=== PATIENT | male | born 1960 | race African-American/Black ===

== ENCOUNTER 2020-06-28 20:12 | Emergency (ER) | payer MEDICAID, OTHER ==
[~2020-06-28] VITALS: Ht 175.3 cm; Wt 90.7 kg
[~2020-06-28 20:12] MED LIST: BUSPIRONE HCL10 M1 ORAL; ESCITALOPRAM OX10 MG ORAL; FOLIC ACID1 MG ORAL; HYDROCHLOROTHIA25 MG ORAL; METFORMIN HCL500 M1 ORAL; TRAZODONE HCL50 MG PO
[2020-06-28 20:20] VITALS: BP 179/114
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
[2020-06-28] MEDS ORDERED: Aspirin Baby 81mg ORAL ONE (20:45)
[2020-06-28 20:49] LABS: BASOPHILS % (AUTO) 2.6 % (0.0-2.0); EOSINOPHILS % (AUTO) 2.7 % (0.0-3.0); HEMATOCRIT 43.8 % (42.0-52.0); HEMOGLOBIN 14.5 G/DL (14.2-18.0); LYMPHOCYTES % (AUTO) 38.8 % (20.0-45.0); MEAN CORPUSCULAR VOLUME 90 FL (80-99); MONOCYTES % (AUTO) 10.8 % (1.0-10.0); PLATELET COUNT 222 K/UL (150-450); RED BLOOD COUNT 4.86 M/UL (4.70-6.10); RED CELL DISTRIBUTION WIDTH 12.5 % (11.6-14.8); WHITE BLOOD COUNT 4.9 K/UL (4.8-10.8)
--- NOTE | 2020-06-28 21:00 | Diagnostic Imaging Report ---
EXAM: XR Chest, 1 View CLINICAL HISTORY: CP TECHNIQUE: Frontal view of the chest. COMPARISON: 07/28/13 FINDINGS: Lungs: Low lung volumes with bronchovascular crowding. No consolidation, pleural effusion, or pneumothorax. Pleural space: See above. Heart: Unremarkable. No cardiomegaly. Mediastinum: Unremarkable. Bones/joints: No acute abnormality IMPRESSION: 1. Low lung volumes with bronchovascular crowding. 2. Otherwise no acute cardiopulmonary disease. 3. If there is continued concern, recommend frontal and lateral chest radiographs or CT.
[2020-06-28 21:04] LABS: ANION GAP 9 mmol/L (5-15); BLOOD UREA NITROGEN 7 mg/dL (7-18); CALCIUM 9.3 MG/DL (8.5-10.1); CARBON DIOXIDE 27 MMOL/L (21-32); CHLORIDE 108 MMOL/L (98-107); POTASSIUM 3.8 MMOL/L (3.5-5.1); SODIUM 144 MMOL/L (136-145)
[2020-06-28 21:09] LABS: ALANINE AMINOTRANSFERASE 97 U/L (12-78); ALBUMIN 3.5 G/DL (3.4-5.0); ALBUMIN/GLOBULIN RATIO 0.9 (1.0-2.7); ALKALINE PHOSPHATASE 74 U/L (46-116); ASPARTATE AMINO TRANSFERASE 43 U/L (15-37); BILIRUBIN,TOTAL 0.4 MG/DL (0.2-1.0)
[2020-06-28 22:45] VITALS: BP 162/94
[2020-06-28] MEDS ORDERED: hydroCHLOROthiazide 25mg cap ORAL ONE (22:45)
--- NOTE | 2020-06-28 23:30 | NUR ---
ED Nurse Note: Recieved report from JIHAN Bergeron to resume care, pt has been discharged and waiting for ambulance transport back to [facility], pt resting quietly in bed, nad noted.
[2020-06-29] MEDS ORDERED: HYDROCHLOROTHIA25 MG ORAL
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
[2020-06-29 01:15] VITALS: BP 178/101
[2020-06-29] MEDS ORDERED: LORazepam 0.5mg tab ORAL ONE (02:15)
[2020-06-29 03:00] VITALS: BP 181/97
--- NOTE | 2020-06-29 03:35 | NUR ---
Patients BP remains around 170-180,however patient insisting to go back home-have no dizziness,no headache, states he feels much better now. TargetingMantra [id number]. Patient notified, states he may try to call [facility] himself but first he wants to check with [facility] if its OK. MAGALYS SHELTON also aware of patients condition. Addendum: 06/29/20 at 0350 by [facility] ambulance will be here around 0430 (not 0330)
--- NOTE | 2020-06-29 03:52 | NUR ---
Patient in and out of his room,presenting multiple requests, the same time on the phone with unknown person, repeatedly asking for transportaion.
--- NOTE | 2020-06-29 05:20 | NUR ---
ED Nurse Note:ER DISCHARGE NOTE: Patient is cleared to be discharged per ERMD, pt is aox4, on room air, with stable vital signs. pt was given dc and prescription instructions, pt was able to verbalize understanding, pt id band removed without complications. pt is able to ambulate with steady gait. pt took all belongings.pt transported via [facility].
[2020-06-29 05:22] VITALS: BP 150/92
== END 2020-06-29 05:20 | disposition home or self-care (01) ==
LOC: EDUNIT# 20:12 → EDBD 20:12 → EMR 20:46
DX: R45.1 Restlessness and agitation (principal); I10 Essential (primary) hypertension; R07.9 Chest pain, unspecified
CPT/HCPCS: 36415; 71045; 80053; 84484; 85025; 93005; 99284